=== PATIENT | female | born 1995 | race Caucasian/White ===

== ENCOUNTER → 2017-04-27 | Outpatient (CLI) | payer BC ==
--- NOTE | 2017-04-27 16:18 | PCVCIMAG ---
APPROVED REPORT Study performed: 04/27/2017 14:39:17 EXAM: Comprehensive 2D, Doppler, and color-flow Echocardiogram Patient Location: Echo lab Room #: 2Status: routine BSA: 1.91 HR: 96 bpmBP: 96/62 mmHg Rhythm: NSR Other Information Study Quality: Good Indications Bradycardia Dyspnea Palpitations 2D Dimensions LVEF(%): 50.71 (>50%) IVSd: 6.38 (7-11mm)LVOT Diam: 20.80 (18-24mm) LVDd: 47.91 mm PWd: 6.45 (7-11mm) LVDs: 35.54 (25-40mm) Left Atrium: 32.25 (27-40mm) Aortic Root: 22.52 mm LV Single Plane 4CH: 49.57 % LV Single Plane 2CH: 53.77 %Li's LVEF: 51.67 % Biplane EF: 51.2 % Volumes Left Atrial Volume (Systole) Single Plane 4CH: 25.22 mLSingle Plane 2CH: 22.12 mL Biplane LA Volume: 24.00 mLLA ESV Index: 13.00 mL/m2 Aortic Valve AoV Peak Juan.: 1.03 m/s AO Peak Gr.: 4.21 mmHgLVOT Max P.09 mmHg LVOT Max V: 0.88 m/s GERTRUDIS Vmax: 2.91 cm2 Mitral Valve E/A Ratio: 1.8 MV Decel. Time: 164.39 ms MV E Max Juan.: 0.77 m/s MV A Juan.: 0.44 m/s IVRT: 72.66 ms TDI E/Lateral E': 4.81E/Medial E': 7.70 Medial E' Juan.: 0.10 m/s Lateral E' Juan.: 0.16 m/s Pulmonary Vein P Vein S: 0.49 m/sP Vein A: 0.26 m/s P Vein D: 0.77 m/sP Vein A Dur.: 72.7 msec P Vein S/D Ratio: 0.64 Tricuspid Valve TV Vmax: 0.75 m/s Left Ventricle The left ventricle is normal size. There is normal LV segmental wall motion. There is normal left ventricular wall thickness. Left ventricular systolic function is low normal. LVEF is 50-55%. The left ventricular diastolic function is normal. Right Ventricle The right ventricle is normal size. The right ventricular systolic function is normal. Atria The left atrium size is normal. The right atrium size is normal. Aortic Valve The aortic valve is normal in structure. No aortic regurgitation is present. There is no aortic valvular stenosis. Mitral Valve The mitral valve is normal in structure. There is no mitral valve regurgitation noted. No evidence of mitral valve stenosis. Tricuspid Valve The tricuspid valve is normal in structure. Trace tricuspid regurgitation. Unable to assess PA pressure. Pulmonic Valve The pulmonary valve is normal in structure. Trace to mild pulmonic regurgitation. Great Vessels The aortic root is normal in size. The ascending aorta is normal in size. IVC is normal in size and collapses with >50% inspiration Pericardium There is no pericardial effusion. <Conclusion> The left ventricle is normal size. Left ventricular systolic function is low normal. The left ventricular diastolic function is normal. The right ventricle is normal size. The left atrium size is normal. The aortic valve is normal in structure. There is no mitral valve regurgitation noted. There is no pericardial effusion.
--- NOTE | 2017-04-27 16:20 | PCVCIMAG ---
APPROVED REPORT Patient Location: Echo lab- [facility] Room #: 2 Stress Nurse: Julia Sanchez RN INDICATIONS: Palpitations, shortness of breath, chest pain The patient exercised according to the Atul Protocol for 13:02 minutes, achieving a maximum work level of 17.5 METS. The resting heart rate of 90 bpm, sy to a maximal level of 196 bpm. This value represents 97 % of the maximal, age-predicted heart rate. The resting blood pressure of 96/64 mmHg, sy to a maximum blood pressure of 152/78 mmHg. The exercise was stopped due to fatigue. Conclusion 1. Clinical response, nonischemic. 2. Stress ECG response, nonischemic. 3. Exercise capacity, superior.
== END | disposition home or self-care (01) ==
LOC: PCVCIMAG 14:54
PROVIDERS: ATTEND Internal Medicine Cardiovascular Disease
DX: R00.1 Bradycardia, unspecified (principal); R00.2 Palpitations; R07.9 Chest pain, unspecified; R06.02 Shortness of breath
CPT/HCPCS: 93017; 93306